=== PATIENT | male | born 2000 | race Caucasian/White ===

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

== ENCOUNTER 2018-03-04 18:03 | Emergency (ER) | payer OTHER | END 2018-03-04 18:28 | disposition home or self-care (01) | LOC: SCSER 18:03 | DX: N61.1 Abscess of the breast and nipple (principal) ==